=== PATIENT | male | born 1950 | race Caucasian/White ===

== ENCOUNTER 2017-03-29 05:40 | Day surgery (SDC) | payer MEDICARE ==
--- NOTE | ~2017-03-29 | EGD ---
EGD REPORT [facility] [address] [place] [address] NAME: JUNIOR Gary COPELAND : [birth year] STATUS : REG [facility]#: [id number] AGE: 66 ADM/REG DATE : 03/29/17 MR#: [id number] REPORT SERV DATE: 03/29/17 DICTATED BY: ALFREDA ESPINO DATE: 03/29/17 REPORT STATUS : Draft TRANSCRIBED BY: [employer] DATE: 03/29/17 Endoscopy Center Patient Name: Junior Gary Copeland. Date of : 1950 Attending MD: ALFREDA ESPINO, Procedure Date No Time: 03/29/2017 Procedure: Upper GI endoscopy Indications: Dysphagia Referring MD: JOSE CARLOS COOPER MD Medicines: Monitored Anesthesia Care Complications: No immediate complications. Estimated blood loss: None. Procedure: Pre-Anesthesia Assessment: - ASA Grade Assessment: III - A patient with severe systemic disease. After obtaining informed consent, the endoscope was passed under direct vision. Throughout the procedure, the patient's blood pressure, pulse, and oxygen saturations were monitored continuously. The GIF [id number] was introduced through the mouth, and advanced to the second part of duodenum. The upper GI endoscopy was accomplished without difficulty. The patient tolerated the procedure well. Findings: The examined esophagus was normal. Multiple biopsies were obtained in the upper third of the esophagus and in the middle third of the esophagus with cold forceps for histology. A guidewire was placed and the scope was withdrawn. Dilation was performed with a Savary dilator with no resistance at 54 Fr. The stomach was normal. The cardia and gastric fundus were normal on retroflexion. The examined duodenum was normal. Impression: - Normal esophagus. Dilated. - Normal stomach. - Normal examined duodenum. - Multiple biopsies were obtained in the upper third of the esophagus and in the middle third of the esophagus. Recommendation: - Return to previous diet. - Continue present medications. - Await pathology results. - Return to GI clinic in 5 weeks. Procedure Code(s): --- Professional --- EGD REPORT [address] [facility] [place] [address] NAME: JUNIOR Gary COPELAND : [birth year] STATUS : REG [facility]#: [id number] AGE: 66 ADM/REG DATE : 03/29/17 MR#: [id number] REPORT SERV DATE: 03/29/17 DICTATED BY: ALFREDA ESPINO DATE: 03/29/17 REPORT STATUS : Draft TRANSCRIBED BY: [facility] DATE: 03/29/17 [id number], Esophagogastroduodenoscopy, flexible, transoral; with insertion of guide wire followed by passage of dilator(s) through esophagus over guide wire [id number], Esophagogastroduodenoscopy, flexible, transoral; with biopsy, single or multiple Diagnosis Code(s): --- Professional --- R13.10, Dysphagia, unspecified CPT copyright 2013 [employer]. All rights reserved. The codes documented in this report are preliminary and upon surface miner review may be revised to meet current compliance requirements. ALFREDA ESPINO, 03/29/2017 7:47 AM Number of Addenda: 0 Note Initiated On: 03/29/2017 7:10 AM Scope Withdrawal Time 0 hours 0 minutes 0 seconds [address] [place] [address]
--- NOTE | ~2017-03-29 | EGD ---
EGD REPORT [facility] [address] [place] [address] NAME: JUNIOR Gary COPELAND : [birth year] STATUS : REG [facility]#: [id number] AGE: 66 ADM/REG DATE : 03/29/17 MR#: [id number] REPORT SERV DATE: 03/29/17 DICTATED BY: ALFREDA ESPINO DATE: 03/29/17 REPORT STATUS : Draft TRANSCRIBED BY: [employer] DATE: 03/29/17 Endoscopy Center Patient Name: Junior Gary Copeland. Date of : 1950 Attending MD: ALFREDA ESPINO, Procedure Date No Time: 03/29/2017 Procedure: Colonoscopy Indications: Screening for colorectal malignant neoplasm Referring MD: JOSE CARLOS COOPER MD Medicines: Monitored Anesthesia Care Complications: No immediate complications. Estimated blood loss: None. Procedure: Pre-Anesthesia Assessment: - ASA Grade Assessment: III - A patient with severe systemic disease. After I obtained informed consent, the scope was passed under direct vision. Throughout the procedure, the patient's blood pressure, pulse, and oxygen saturations were monitored continuously. The CF [id number] was introduced through the anus and advanced to the cecum, identified by appendiceal orifice and ileocecal valve. The colonoscopy was performed without difficulty. The patient tolerated the procedure well. The quality of the bowel preparation was good. The ileocecal valve, appendiceal orifice and rectum were photographed. Findings: The perianal and digital rectal examinations were normal. Internal hemorrhoids were found during retroflexion and were Grade II (internal hemorrhoids that prolapse but reduce spontaneously). A few small-mouthed diverticula were found in the sigmoid colon. The exam was otherwise without abnormality on direct and retroflexion views. Impression: - Internal hemorrhoids. - Diverticulosis in the sigmoid colon. - The examination was otherwise normal on direct and retroflexion views. Recommendation: - Return to previous diet. - Continue present medications. - Repeat colonoscopy in 10 years for screening purposes. Procedure Code(s): --- Professional --- G0121, Colorectal cancer screening; colonoscopy on individual not meeting criteria for high risk EGD REPORT [facility] [address] [place], [place] [address]. [address] NAME: JUNIOR Gary COPELAND : [birth year] STATUS : REG [facility]#: [id number] AGE: 66 ADM/REG DATE : 03/29/17 MR#: [id number] REPORT SERV DATE: 03/29/17 DICTATED BY: ALFREDA ESPINO DATE: 03/29/17 REPORT STATUS : Draft TRANSCRIBED BY: Sarbari DATE: 03/29/17 Diagnosis Code(s): --- Professional --- K64.1, Second degree hemorrhoids K57.30, Diverticulosis of large intestine without perforation or abscess without bleeding Z12.11, Encounter for screening for malignant neoplasm of colon CPT copyright 2013 [employer]. All rights reserved. The codes documented in this report are preliminary and upon circuitry negative inspector review may be revised to meet current compliance requirements. ALFREDA ESPINO, 03/29/2017 7:48 AM Number of Addenda: 0 Note Initiated On: 03/29/2017 7:07 AM Scope Withdrawal Time 0 hours 7 minutes 56 seconds [address] [facility] [address] [place] [address]
[~2017-03-29 05:40] MED LIST: ASAB PO; ASMANEX 30110 MCG IN; ATRIPLA PO; C5; COZ25 PO; FLOMAX4 PO; FLONASE NAS; KLONO1 PO; KLONO5 PO; LISINOPRIL40 MG PO; LORTAB10 PO; MOBIC15 MG PO; MOBIC7.5 PO; MULTI-VIT HP PO; NEXIUM40 PO; NORCO1 TAB PO; OXYCON20 PO; PERCOCET1 TA4 PO; PROAIR HFA INH; PROSCAR5 PO; PROVHFA INH; SYMBICORT 160/41 INH INH; TOPAMAX100 PO; VITAMIN B-122500 MCG SL; VITAMIN D1000 UNI1 PO; VITAMIN D31000 UNIT PO; VITC500 PO; WELLSR150 PO
[2017-05-20] MEDS ORDERED: TUMERIC PO (17:46)
== END 2017-03-29 23:59 | disposition home or self-care (01) ==
LOC: DMU 05:40
PROVIDERS: Internal Medicine Gastroenterology
PROC: 0DB28ZX Excision of Middle Esophagus, Via Natural or Artificial Opening Endoscopic, Diagnostic (ICD-10-PCS; 2017-03-29)
PROC: 0DJD8ZZ Inspection of Lower Intestinal Tract, Via Natural or Artificial Opening Endoscopic (ICD-10-PCS; principal; 2017-03-29 07:00)
PROC: 0D718ZZ Dilation of Upper Esophagus, Via Natural or Artificial Opening Endoscopic (ICD-10-PCS; 2017-03-29 07:00)
PROC: 0DB18ZX Excision of Upper Esophagus, Via Natural or Artificial Opening Endoscopic, Diagnostic (ICD-10-PCS; 2017-03-29 07:00)
DX: Z12.11 Encounter for screening for malignant neoplasm of colon (principal); K22.8 Other specified diseases of esophagus; K64.1 Second degree hemorrhoids; K57.30 Diverticulosis of large intestine without perforation or abscess without bleeding; K21.9 Gastro-esophageal reflux disease without esophagitis; I10 Essential (primary) hypertension; J45.909 Unspecified asthma, uncomplicated; G47.33 Obstructive sleep apnea (adult) (pediatric); Z99.89 Dependence on other enabling machines and devices; N40.0 Benign prostatic hyperplasia without lower urinary tract symptoms; F41.9 Anxiety disorder, unspecified; F32.9 Major depressive disorder, single episode, unspecified; H91.93 Unspecified hearing loss, bilateral; M19.90 Unspecified osteoarthritis, unspecified site; G89.29 Other chronic pain; Z96.653 Presence of artificial knee joint, bilateral; Z90.89 Acquired absence of other organs; Z79.51 Long term (current) use of inhaled steroids; Z79.891 Long term (current) use of opiate analgesic; Z79.82 Long term (current) use of aspirin; Z79.899 Other long term (current) drug therapy; Z98.890 Other specified postprocedural states
CPT/HCPCS: 43239; 43248; G0121; 88305